=== PATIENT | male | born 1960 | race Two or more races ===

== ENCOUNTER 2025-03-03 17:08 | Emergency (ER) | payer MEDICAID ==
[~2025-03-03] VITALS: Ht 182.9 cm; Wt 108.5 kg
[~2025-03-03 17:08] MED LIST: LEVO750T8 PO; LISI40TA16 PO; MET500T PO; PANT40TA2 PO; TIRZ2.5I SC; URSO1TAB7 PO
[2025-03-03 17:20] VITALS: BP 123/84; PULSE 87; RESP 18; TEMP 98.1; O2SAT 97
--- NOTE | 2025-03-03 17:30 | ED.PDOC ---
History of Present Illness HPI Comments 64 year old male presents to the ED with a chief complaint of hyperglycemia onset today. Patient states he was experiencing headache, checked his blood glucose at home, was 432, decided to come to ED. PMHx HTN, DM, had not seen PCP for over 1 year, was not taking any medication. Saw PCP 1 week ago, began taking medication for HTN, DM, noticed BG has been increasing. The past 4 days BG has been 375, 310, 301, 432 (today). Follow up appointment with PCP is in 1 month. Denies dizziness, chest pain, shortness of breath, nausea, vomiting, diarrhea, fevers, chills. No other symptoms or modifying factors present at this time. Chief Complaint: Hyperglycemia Time Seen by MD: 17:20 Primary Care Provider: CARLEY Reviewed Notes: Medications, Allergies Allergies: Coded Allergies: NO KNOWN ALLERGIES (Unverified , 01/09/14) Home Meds Active Scripts Pantoprazole Sodium Sesquihydr (Protonix) 40 Mg Tab, 40 MG PO DAILY for 14 Days, #14 TAB Prov:ELIAS LOW RESIDENT 01/20/24 Levofloxacin (Levaquin 750 mg) 750 Mg Tab, 1 TAB PO DAILY for 5 Days, #5 TAB [facility] 01/20/24 Metronidazole (Metronidazole) 500 Mg Tab, 500 MG PO TID for 5 Days, #15 TAB Prov:ELIAS [facility] RESIDENT 01/20/24 Ursodiol (Ursodiol) 250 Mg Tab, 250 MG PO BID for 30 Days, #60 TAB [facility] 01/20/24 Reported Medications Tirzepatide (Mounjaro) 2.5 Mg/0.5 Ml Inj, MG SC QWEEKLY, INJ 01/20/24 Lisinopril (Lisinopril) 40 Mg Tab, 50 MG PO DAILY, TAB 01/20/24 Information Source: Patient Mode of Arrival: Ambulatory Severity: Moderate Timing: Hours Duration: Since onset Prehospital treatment: None Past Medical History PAST MEDICAL HISTORY: DM, HTN, Denies Surgical History: Denies all surgeries Family History Family History: No family hx of DM Social History Smoker: Non-Smoker Alcohol: Rarely Drugs: Denies Drug Use Lives In: Home Constitutional: denies: chills, diaphoresis, fatigue, fever, malaise, sweats, weakness, others EENTM: denies: blurred vision, double vision, ear bleeding, ear discharge, ear drainage, ear pain, ear ringing, eye pain, eye redness, hearing loss, mouth pain, mouth swelling, nasal discharge, nose bleeding, nose congestion, nose pain, photophobia, tearing, throat pain, throat swelling, voice changes, others Respiratory: denies: cough, hemoptysis, orthopnea, SOB at rest, shortness of breath, SOB with excertion, stridor, wheezing, others Cardiovascular: denies: chest pain, dizzy spells, diaphoresis, Dyspnea on exertion, edema, irregular heart beat, left arm pain, lightheadedness, palpitations, PND, syncope, others Gastrointestinal: denies: abdomen distended, abdominal pain, blood streaked bowels, constipated, diarrhea, dysphagia, difficulty swallowing, hematemesis, melena, nausea, poor appetite, poor fluid intake, rectal bleeding, rectal pain, vomiting, others Genitourinary: denies: burning, dysuria, flank pain, frequency, hematuria, incontinence, penile discharge, penile sore, pain, testicle pain, testicle swelling, urgency, others Neurological: reports: headache; denies: dizziness, fainting, left sided numbness, left sided weakness, numbness, paresthesia, pre-existing deficit, right sided numbness, right sided weakness, seizure, speech problems, tingling, tremors, weakness, others Musculoskeletal: denies: back pain, gout, joint pain, joint swelling, muscle pain, muscle stiffness, neck pain, others Integumetry: denies: bruises, change in color, change in hair/nails, dryness, laceration, lesions, lumps, rash, wounds, others Allergic/Immunocompromised: denies: Difficulty Healing, Frequent Infections, Hives, Itching, others Hematologic/Lymphatic: denies: anemia, blood clots, easy bleeding, easy bruising, swollen glands, others Endocrine: denies: excessive hunger, excessive sweating, excessive thirst, excessive urination, flushing, intolerance to cold, intolerance to heat, unexplained weight gain, unexplained weight loss, others Psychiatric: denies: anxiety, bipolar disorder, depression, hopeless, panic disorder, schizophrenia, sleepless, suicidal, others All Other Systems: Reviewed and Negative Physical Exam General Appearance: No Apparent Distress, Normal HEENT: Normal ENT Inspection, Pharynx Normal, TMs Normal Neck: Full Range of Motion, Non-Tender, Normal, Normal Inspection Respiratory: Chest Non-Tender, Lungs Clear, No Accessory Muscle Use, No Respiratory Distress, Normal Breath Sounds Cardiovascular: No Edema, No JVD, No Murmur, No Gallop, Normal Peripheral Pulses, Regular Rate/Rhythm Breast Exam: Deferred Gastrointestinal: No Organomegaly, Non Tender, No Pulsatile Mass, Normal Bowel Sounds, Soft Genitalia: Deferred Pelvic: Deferred Rectal: Deferred Extremities: No calf tenderness, Normal capillary refill, Normal inspection, Normal range of motion, Non-tender, No pedal edema Musculoskeletal : Apperance: Normal Neurologic: Alert, production metal sprayer II-XII nml as Tested, No Motor Deficits, Normal Affect, Normal Mood, No Sensory Deficits Cerebellar Function: Normal Reflexes: Normal Skin: Dry, Normal Color, Warm Lymphatic: No Adenopathy Was a procedure done? Was a procedure done?: No Differential Dx Considerations may include: DKA, hyperglycemia, X-Ray, Labs, Meds, VS Vital Signs Date Time Temp Pulse Resp B/P (MAP) Pulse Ox O2 Delivery O2 Flow Rate FiO2 03/03/25 17:20 98.1 87 18 123/84 (97) 97 98.1 Lab Test 03/03/25 17:56 03/03/25 17:35 03/03/25 17:33 Range/Units White Blood Count 12.2 H 4.4-10.8 10^3/uL Red Blood Count 5.81 4.5-5.90 10^6/uL Hemoglobin 16.5 13.5-17.5 g/dL Hematocrit 49.9 41.0-53.0 % Mean Corpuscular Volume 85.9 80.0-100.0 fL Mean Corpuscular Hemoglobin 28.4 28.0-32.0 pg Mean Corpuscular Hemoglobin Concent 33.1 32.0-36.0 g/dL Red Cell Distribution Width 12.9 11.8-14.3 % Platelet Count 234 140-450 10^3/uL Mean Platelet Volume 10.1 6.9-10.8 fL Neutrophils (%) (Auto) 61.8 37.0-80.0 % Lymphocytes (%) (Auto) 23.5 10.0-50.0 % Monocytes (%) (Auto) 11.5 0.0-12.0 % Eosinophils (%) (Auto) 2.2 0.0-7.0 % Basophils (%) (Auto) 1.0 0.0-2.0 % Neutrophils # (Auto) 7.6 1.6-8.6 10 ^3/uL Lymphocytes # (Auto) 2.9 0.4-5.4 10 ^3/uL Monocytes # (Auto) 1.4 H 0-1.3 10 ^3/uL Eosinophils # (Auto) 0.3 0-0.8 10 ^3/uL Basophils # (Auto) 0.1 0-0.2 10 ^3/uL Nucleated Red Blood Cells 0.2 % Sodium Level 135 L 136-145 mmol/L Potassium Level 3.7 3.5-5.1 mmol/L Chloride Level 99 98-107 mmol/L Carbon Dioxide Level 26 20-31 mmol/L Anion Gap 10 5-15 Blood Urea Nitrogen 29 H 9-23 mg/dL Creatinine 1.80 H 0.700-1.30 mg/dL Glomerular Filtration Rate Calc 42 >90 mL/min BUN/Creatinine Ratio 16.1 10.0-20.0 Serum Glucose 276 H 74-106 mg/dL Calcium Level 10.3 8.7-10.4 mg/dL Total Bilirubin 0.8 0.2-1.0 mg/dL Aspartate Amino Transferase (AST) 16 13-40 U/L Alanine Aminotransferase (ALT) 21 7-40 U/L Alkaline Phosphatase 101 46-116 U/L Total Protein 7.8 5.7-8.2 g/dL Albumin 5.0 H 3.2-4.8 g/dL Urine Color Light-yellow Yellow Urine Clarity Clear Clear Urine pH 5.0 5.0-9.0 Urine Specific [place] 1.025 1.001-1.035 Urine Protein Negative Negative Urine Ketones Negative Negative Urine Blood Negative Negative /uL Urine Nitrite Negative Negative Urine Bilirubin Negative Negative Urine Urobilinogen Normal Negative mg/dL Urine Leukocyte Esterase Negative Negative /uL Urine RBC <1 0 - 3 /hpf Urine Microscopic WBC 1 0-3 /HPF Urine Squamous Epithelial Cells Few <5 /hpf Urine Bacteria None seen None Seen /hpf Urine Glucose 4+ H Normal mg/dL POC Glucose 249 H 70-106 mg/dl X-Ray, Labs, Meds, VS Comment Imaging: X-rays and CT scans were reviewed and interpreted by this provider, imaging shows no fractures and no pathological disease. Pending radiology review. Laboratory: Labs reviewed and interpreted by this provider. Elevated blood sugar, signs of hospital acute versus chronic kidney injury, patient states he was producing urine Patient has prior medical visits reviewed. Med reconciliation performed Vital signs reviewed Time of 1ST Reevaluation: 17:50 Reevaluation 1ST: Improved Patient Education/Counseling: Diagnosis, Treatment, Prognosis, Need For Follow Up (Patient advised he will need to call his primary care doctor and follow up tomorrow if available. If he noticed any issues he was signs of decreased urine now but he was returned to the emergency department.) Family Education/Counseling: No Family Present Departure 1 Departure Time of Disposition: 18:56 Impression: Primary Impression: Hypoglycemic event in diabetes Disposition: 01 HOME / SELF CARE / HOMELESS Condition: Fair Discharged With: Self Comments Continue medications as prescribed Critical Care Note Critical Care Time?: No Stability Stability form required: No I personally scribed for BRITTANIE DASILVA ([email or web address]) on 03/03/25 at 17:30. Electronically submitted by Alisson Avila ([email or web address]). BRITTANIE DASILVA Mar 03, 2025 17:30
[2025-03-03 17:47] LABS: Urine Bacteria None Seen /hpf (None Seen)
[2025-03-03 18:08] LABS: Mean Corpuscular Hemoglobin 28.4 pg (28.0-32.0); Mean Corpuscular Hgb Conc. 33.1 g/dL (32.0-36.0)
[2025-03-03 18:25] LABS: Urine Blood Negative /uL (Negative); Urine Clarity Clear (Clear); Urine Color Light-Yellow (Yellow); Urine Protein, UAD Negative (Negative); Urine Specific Gravity 1.025 (1.001-1.035); Urine Squamous Epithelial Cell FEW /hpf (<5); Urine Urobilinogen Normal (Negative); Urine WBC 1 /HPF (0-3)
[2025-03-03 18:26] LABS: Basophils # (auto) 0.1 10 ^3/uL (0-0.2); Eosinophils # (auto) 0.3 10 ^3/uL (0-0.8); Eosinophils % (auto) 2.2 % (0.0-7.0); Hematocrit 49.9 % (41.0-53.0); Hemoglobin 16.5 g/dL (13.5-17.5); Lymphocytes # (auto) 2.9 10 ^3/uL (0.4-5.4); Lymphocytes % (auto) 23.5 % (10.0-50.0); Mean Corpuscular Volume 85.9 fL (80.0-100.0); Monocytes # (auto) 1.4 10 ^3/uL (0-1.3); Monocytes % (auto) 11.5 % (0.0-12.0); Neutrophils # (auto) 7.6 10 ^3/uL (1.6-8.6); Neutrophils % (auto) 61.8 % (37.0-80.0); Nucleated Red Blood Cells % 0.2 %; Platelet Count (auto) 234 10^3/uL (140-450); Red Blood Cells 5.81 10^6/uL (4.5-5.90); Red Cell Distribution Width 12.9 % (11.8-14.3); White Blood Cell 12.2 10^3/uL (4.4-10.8)
[2025-03-03 18:29] LABS: Alanine Aminotransferase 21 U/L (7-40); Alkaline Phosphatase 101 U/L (46-116); Anion Gap 10 (5-15); Aspartate Aminotransferase 16 U/L (13-40); BUN/Creatinine Ratio 16.1 (10.0-20.0); Calcium 10.3 mg/dL (8.7-10.4); Carbon Dioxide 26 mmol/L (20-31); Chloride 99 mmol/L (98-107); Potassium 3.7 mmol/L (3.5-5.1); Total Protein 7.8 g/dL (5.7-8.2)
[2025-03-03 18:30] LABS: Bilirubin, Total 0.8 mg/dL (0.2-1.0)
[2025-03-03 18:36] LABS: Blood Urea Nitrogen 29 mg/dL (9-23); Glucose 276 mg/dL (74-106); Sodium 135 mmol/L (136-145)
== END 2025-03-03 20:37 | disposition home or self-care (01) ==
LOC: ER 17:08
DX: E11.649 Type 2 diabetes mellitus with hypoglycemia without coma (principal); I10 Essential (primary) hypertension; Z79.85 Long-term (current) use of injectable non-insulin antidiabetic drugs; Z79.899 Other long term (current) drug therapy
CPT/HCPCS: 36415; 80053; 81001; 82947; 82962; 85025

== ENCOUNTER 2025-05-24 20:10 | Inpatient (IN) | payer SELFPAY ==
[~2025-05-24] VITALS: Ht 182.9 cm; Wt 107.1 kg
[2025-05-24 20:48] LABS: Urine Bacteria None Seen /hpf (None Seen)
[2025-05-24 21:02] LABS: Basophils # (auto) 0.1 10 ^3/uL (0-0.2); Basophils % (auto) 0.8 % (0.0-2.0); Eosinophils # (auto) 0 10 ^3/uL (0-0.8); Eosinophils % (auto) 0.1 % (0.0-7.0); Hematocrit 45.5 % (41.0-53.0); Hemoglobin 15.3 g/dL (13.5-17.5); Lymphocytes # (auto) 0.6 10 ^3/uL (0.4-5.4); Lymphocytes % (auto) 5.7 % (10.0-50.0); Mean Corpuscular Hemoglobin 28.3 pg (28.0-32.0); Mean Corpuscular Hgb Conc. 33.6 g/dL (32.0-36.0); Mean Corpuscular Volume 84.3 fL (80.0-100.0); Monocytes # (auto) 0.9 10 ^3/uL (0-1.3); Monocytes % (auto) 8.2 % (0.0-12.0); Neutrophils # (auto) 9.7 10 ^3/uL (1.6-8.6); Neutrophils % (auto) 85.2 % (37.0-80.0); Platelet Count (auto) 265 10^3/uL (140-450); Red Cell Distribution Width 13.3 % (11.8-14.3); White Blood Cell 11.4 10^3/uL (4.4-10.8)
[2025-05-24 21:11] LABS: Chloride 107 mmol/L (98-107); Potassium 4.6 mmol/L (3.5-5.1); Sodium 141 mmol/L (136-145)
[2025-05-24 21:12] LABS: Anion Gap 9 (5-15); Carbon Dioxide 25 mmol/L (20-31)
[2025-05-24 21:17] LABS: BUN/Creatinine Ratio 11.4 (10.0-20.0); Blood Urea Nitrogen 17 mg/dL (9-23)
[2025-05-24 21:39] LABS: Glucose 260 mg/dL (74-106)
[2025-05-24 21:40] LABS: Urine Blood Negative /uL (Negative); Urine Clarity Clear (Clear); Urine Color Yellow (Yellow); Urine Mucus FEW (None Seen); Urine Protein, UAD Negative (Negative); Urine Specific Gravity 1.024 (1.001-1.035); Urine Squamous Epithelial Cell FEW /hpf (<5); Urine Urobilinogen Normal (Negative); Urine WBC 2 /HPF (0-3); Urine pH 5.5 (5.0-9.0)
--- NOTE | 2025-05-24 21:51 | ED.PDOC ---
GI ASSESSMENT HPI Comments 64 year old male presents to the ED with a chief complaint of abdominal pain onset today (05/24/25) about 2 hours prior to ED arrival. Patient states he began experiencing LLQ pain about 2 hours ago, noticed pain radiates to LT leg. Patient also noticed he has been experiencing constipation. He ran out of DM medication about 2 weeks ago. PMHx HTN, DM, kidney stones. Denies nausea, vomiting, diarrhea, headache, dizziness, dysuria, hematuria, frequency, chest pain, shortness of breath, fevers, chills. No other symptoms or modifying factors present at this time. Chief Complaint: Abdominal Pain Time Seen by MD: 21:40 Primary Care Provider: Leighton MONTIEL Reviewed Notes: Medications, Allergies Allergies: Coded Allergies: NO KNOWN ALLERGIES (Unverified , 01/09/14) Home Meds Active Scripts Pantoprazole Sodium Sesquihydr (Protonix) 40 Mg Tab, 40 MG PO DAILY for 14 Days, #14 TAB [facility] 01/20/24 Levofloxacin (Levaquin 750 mg) 750 Mg Tab, 1 TAB PO DAILY for 5 Days, #5 TAB [facility] 01/20/24 Metronidazole (Metronidazole) 500 Mg Tab, 500 MG PO TID for 5 Days, #15 TAB [facility] 01/20/24 Ursodiol (Ursodiol) 250 Mg Tab, 250 MG PO BID for 30 Days, #60 TAB [facility] 01/20/24 Reported Medications Tirzepatide (Mounjaro) 2.5 Mg/0.5 Ml Inj, MG SC QWEEKLY, INJ 01/20/24 Lisinopril (Lisinopril) 40 Mg Tab, 50 MG PO DAILY, TAB 01/20/24 Information Source: Patient Mode of Arrival: Ambulatory Timing: Hours Duration: Since onset Prehospital treatment: None Quality: Sharp Vomitus: None Severity: Moderate Recent: None Recent Hx of: None Pain Location: LLQ Modifying Factors: Nothing Associated sign and symptoms: Constipation, Abdominal Pain (LLQ) Past Medical History PAST MEDICAL HISTORY: DM, HTN Surgical History: Denies all surgeries Family History Family History: No family hx of DM Social History Smoker: Non-Smoker Alcohol: Rarely Drugs: Denies Drug Use Lives In: Home Constitutional: denies: chills, diaphoresis, fatigue, fever, malaise, sweats, weakness, others EENTM: denies: blurred vision, double vision, ear bleeding, ear discharge, ear drainage, ear pain, ear ringing, eye pain, eye redness, hearing loss, mouth pain, mouth swelling, nasal discharge, nose bleeding, nose congestion, nose pain, photophobia, tearing, throat pain, throat swelling, voice changes, others Respiratory: denies: cough, hemoptysis, orthopnea, SOB at rest, shortness of breath, SOB with excertion, stridor, wheezing, others Cardiovascular: denies: chest pain, dizzy spells, diaphoresis, Dyspnea on exertion, edema, irregular heart beat, left arm pain, lightheadedness, palpitations, PND, syncope, others Gastrointestinal: reports: abdominal pain (LLQ), constipated; denies: abdomen distended, blood streaked bowels, diarrhea, dysphagia, difficulty swallowing, hematemesis, melena, nausea, poor appetite, poor fluid intake, rectal bleeding, rectal pain, vomiting, others Genitourinary: denies: burning, dysuria, flank pain, frequency, hematuria, incontinence, penile discharge, penile sore, pain, testicle pain, testicle swelling, urgency, others Neurological: denies: dizziness, fainting, headache, left sided numbness, left sided weakness, numbness, paresthesia, pre-existing deficit, right sided numbness, right sided weakness, seizure, speech problems, tingling, tremors, weakness, others Musculoskeletal: reports: others (LT leg pain); denies: back pain, gout, joint pain, joint swelling, muscle pain, muscle stiffness, neck pain Integumetry: denies: bruises, change in color, change in hair/nails, dryness, laceration, lesions, lumps, rash, wounds, others Allergic/Immunocompromised: denies: Difficulty Healing, Frequent Infections, Hives, Itching, others Hematologic/Lymphatic: denies: anemia, blood clots, easy bleeding, easy bruisi ng, swollen glands, others Endocrine: denies: excessive hunger, excessive sweating, excessive thirst, exce ssive urination, flushing, intolerance to cold, intolerance to heat, unexplained weight gain, unexplained weight loss, others Psychiatric: denies: anxiety, bipolar disorder, depression, hopeless, panic disorder, schizophrenia, sleepless, suicidal, others All Other Systems: Reviewed and Negative Physical Exam General Appearance: Normal HEENT: Normal ENT Inspection, Pharynx Normal, TMs Normal Neck: Full Range of Motion, Non-Tender, Normal, Normal Inspection Respiratory: Chest Non-Tender, Lungs Clear, No Accessory Muscle Use, No Respiratory Distress, Normal Breath Sounds Cardiovascular: No Edema, No JVD, No Murmur, No Gallop, Normal Peripheral Pulses, Regular Rate/Rhythm Breast Exam: Deferred Gastrointestinal: No Organomegaly, Non Tender, No Pulsatile Mass, Normal Bowel Sounds, Soft Genitalia: Deferred Pelvic: Deferred Rectal: Deferred Extremities: No calf tenderness, Normal capillary refill, Normal inspection, Normal range of motion, Non-tender, No pedal edema Musculoskeletal : Apperance: Normal Neurologic: Alert, armhole raiser lockstitch II-XII nml as Tested, No Motor Deficits, Normal Affect, Normal Mood, No Sensory Deficits Cerebellar Function: Normal Reflexes: Normal Skin: Dry, Normal Color, Warm Lymphatic: No Adenopathy Was a procedure done? Was a procedure done?: No GI differential Dx Differential Diagnosis: Gastritis/PUD, Gastroenteritis, PID, UTI X-Ray, Labs, Meds, VS Vital Signs Date Time Temp Pulse Resp B/P (MAP) Pulse Ox O2 Delivery O2 Flow Rate FiO2 05/24/25 23:41 99.1 70 18 123/74 (90) 95 99.1 05/24/25 23:40 70 18 123/84 05/24/25 22:40 72 21 99 Room Air 05/24/25 22:40 98.3 72 21 133/116 (122) 99 98.3 05/24/25 22:39 72 21 133/116 05/24/25 20:34 97.3 79 16 161/88 (112) 96 97.3 Lab Test 05/24/25 20:48 05/24/25 20:46 Range/Units White Blood Count 11.4 H 4.4-10.8 10^3/uL Red Blood Count 5.40 4.5-5.90 10^6/uL Hemoglobin 15.3 13.5-17.5 g/dL Hematocrit 45.5 41.0-53.0 % Mean Corpuscular Volume 84.3 80.0-100.0 fL Mean Corpuscular Hemoglobin 28.3 28.0-32.0 pg Mean Corpuscular Hemoglobin Concent 33.6 32.0-36.0 g/dL Red Cell Distribution Width 13.3 11.8-14.3 % Platelet Count 265 140-450 10^3/uL Mean Platelet Volume 8.8 6.9-10.8 fL Neutrophils (%) (Auto) 85.2 H 37.0-80.0 % Lymphocytes (%) (Auto) 5.7 L 10.0-50.0 % Monocytes (%) (Auto) 8.2 0.0-12.0 % Eosinophils (%) (Auto) 0.1 0.0-7.0 % Basophils (%) (Auto) 0.8 0.0-2.0 % Neutrophils # (Auto) 9.7 H 1.6-8.6 10 ^3/uL Lymphocytes # (Auto) 0.6 0.4-5.4 10 ^3/uL Monocytes # (Auto) 0.9 0-1.3 10 ^3/uL Eosinophils # (Auto) 0 0-0.8 10 ^3/uL Basophils # (Auto) 0.1 0-0.2 10 ^3/uL Nucleated Red Blood Cells 0.0 % Sodium Level 141 136-145 mmol/L Potassium Level 4.6 3.5-5.1 mmol/L Chloride Level 107 98-107 mmol/L Carbon Dioxide Level 25 20-31 mmol/L Anion Gap 9 5-15 Blood Urea Nitrogen 17 9-23 mg/dL Creatinine 1.49 H 0.700-1.30 mg/dL Glomerular Filtration Rate Calc 52 >90 mL/min BUN/Creatinine Ratio 11.4 10.0-20.0 Serum Glucose 260 H 74-106 mg/dL Calcium Level 10.0 8.7-10.4 mg/dL Urine Color Yellow Yellow Urine Clarity Clear Clear Urine pH 5.5 5.0-9.0 Urine Specific [place] 1.024 1.001-1.035 Urine Protein Negative Negative Urine Ketones 1+ H Negative Urine Blood Negative Negative /uL Urine Nitrite Negative Negative Urine Bilirubin Negative Negative Urine Urobilinogen Normal Negative mg/dL Urine Leukocyte Esterase Negative Negative /uL Urine RBC 1 0 - 3 /hpf Urine Microscopic WBC 2 0-3 /HPF Urine Squamous Epithelial Cells Few <5 /hpf Urine Bacteria None seen None Seen /hpf Urine Mucus Few None Seen Urine Glucose 3+ H Normal mg/dL Current Medications Medications (Trade) Dose Ordered Sig/Joao Route Start Time Stop Time Status Last Admin Sodium Chloride 1,000 ml @ 1,000 mls/hr Q1H ONCE IV 05/24/25 22:15 05/24/25 23:14 DC 05/24/25 22:39 Ondansetron HCl (Zofran) 4 mg ONCE ONCE IV 05/24/25 22:15 05/24/25 22:16 DC 05/24/25 22:38 Morphine Sulfate 4 mg ONCE ONCE IV 05/24/25 22:15 05/24/25 22:16 DC 05/24/25 22:39 Time of 1ST Reevaluation: 22:10 Reevaluation 1ST: Unchanged Patient Education/Counseling: Diagnosis, Treatment, Prognosis Family Education/Counseling: No Family Present SEPSIS Sepsis Screen Date sepsis recognized/suspect: May 24, 2025 Time Sepsis recognized/suspect: 2019 Recent Procedure: No On Antibiotic Therapy: No Respiratory Rate >20: No Heart Rate >90: No Temp<36 C (96.8 F) or >38.3 C: No SBP <90 or MAP <65 mmHG: No New Acute Mental Status Change: No Is the patient on CPAP, BIPAP,: No Physician Orders Ct Ab Pel With Iv Con Only (05/24/25 22:09) NS (05/25/25 00:15) Tamsulosin Hydrochloride (Flomax) (05/25/25 00:15) Ketorolac Injection (Toradol Injection) (05/25/25 00:15) Vital Signs Date Time Temp Pulse Resp B/P (MAP) Pulse Ox O2 Delivery O2 Flow Rate FiO2 05/24/25 23:41 99.1 70 18 123/74 (90) 95 99.1 05/24/25 23:40 70 18 123/84 05/24/25 22:40 72 21 99 Room Air 05/24/25 22:40 98.3 72 21 133/116 (122) 99 98.3 05/24/25 22:39 72 21 133/116 05/24/25 20:34 97.3 79 16 161/88 (112) 96 97.3 Laboratory Tests Test 05/24/25 20:48 White Blood Count 11.4 10^3/uL (4.4-10.8) H Medications Medications Dose Ordered Sig/Joao Route Start Time Stop Time Status Last Admin Dose Admin Morphine Sulfate 4 mg ONCE ONCE IV 05/24/25 22:15 05/24/25 22:16 DC 05/24/25 22:39 Ondansetron HCl 4 mg ONCE ONCE IV 05/24/25 22:15 05/24/25 22:16 DC 05/24/25 22:38 Sodium Chloride 1,000 ml @ 1,000 mls/hr Q1H ONCE IV 05/24/25 22:15 05/24/25 23:14 DC 05/24/25 22:39 Departure 1 Departure Time of Disposition: 00:04 (Patient presented with abdominal pain that was concerning for possible appendicits, gastritis, cholecystitis, colitis, gastr oenteritis, sbo, or orther possible surgical emergency. Data: 1. I ordered and reviewed the result of at least 3 labs including a CBC, BMP, and Urinalysis. 2. I independently interpreted the following tests: CT Abdoment and Pelvis is concerning for renal colic .Risk:This patient has a high risk of morbidity due to further diagnostic testing or treatment and may suffer from an acute abdominal process disorder. Workup reveals renal colic and hydronephrosis and patient should be admitted for further workup. and possible expert consultation. ) Impression: Primary Impression: Flank pain Additional Impressions: Renal colic on left side Intractable abdominal pain Disposition: ADMITTED INPATIENT Admit to: Med Surg Condition: Guarded Critical Care Note Critical Care Time?: Yes Critical care comment: Intractable abdominal pain Authorized and Performed by: Gregorio Gregorio MD Total critical care time: Approximately _39 minutes Due to a high probability of clinically significant, life threatening deterioration, the patient required my highest level of preparedness to intervene emergently and I personally spent this critical care time directly and personally managing the patient. This critical care time included obtaining a history; examining the patient; pulse oximetry; ordering and review of studies; arranging urgent treatment with development of a management plan; evaluation of patient's response to treatment; frequent reassessment; and, discussions with other providers. This critical care time was performed to assess and manage the high probability of imminent, life-threatening deterioration that could result in multi-organ failure. It was exclusive of separately billable procedures and treating other patients and teaching time. Please see my other sections and the rest of the note for further information on patient assessment and treatment. Stability Stability form required: No I personally scribed for GREGORIO GREGORIO MD ([email or web address]) on 05/24/25 at 21:51. Electronically submitted by Alisson Avila ([email or web address]). GREGORIO GREGORIO MD May 24, 2025 21:51
[2025-05-24] MEDS: IOHEXOL 300 MG/ML 100ML BOTTLE IJ ONE (22:18)
[2025-05-24] MEDS: ONDANSETRON HCL 4 MG/2 ML VIAL IV ONE (22:38)
[2025-05-24] MEDS: MORPHINE SULFATE 4 MG/ML SYR/VIAL IV ONE (22:39)
[2025-05-24] MEDS: SODIUM CHLORIDE 0.9% 1,000 ML IV ONE (22:39)
--- NOTE | 2025-05-24 23:47 | DVH ---
CT OF THE ABDOMEN AND PELVIS WITH CONTRAST. HISTORY: abdominal pain COMPARISON: None TECHNIQUE: Helical axial CT images of the abdomen and pelvis were obtained with intravenous contrast. Multiplanar reformats. One or more of the following radiation dose reduction techniques were used fo r this examination: automated exposure control, adjustment of the mA and/or kV according to patient s ize, use of iterative reconstruction technique. FINDINGS: Atelectasis/scarring noted in the left lower lobe and lingula. Liver: No discrete hepatic lesions as visualized. Gallbladder and biliary system: Cholelithiasis. No biliary ductal dilatation. Pancreas: Negative. Spleen: Negative. Adrenal Glands: Negative. Kidneys and collecting system: Symmetrical enhancement. Mild left hydroureteronephrosis and perinephr ic inflammation. An approximately 2-3 mm calculus is seen in the distal left ureter at the ureteroves icular junction. No right hydroureteronephrosis. Retroperitoneum: No evidence of abdominal aortic aneurysm. Lymph nodes: No discretely enlarged lymph nodes identified. Bowel: Postsurgical changes of the stomach. No evidence of bowel obstruction. Normal caliber appendi x. Extensive colonic diverticulosis. No definite CT evidence of diverticulitis at this time. No ron e intraperitoneal air or fluid identified. Without Pelvis: The prostate is enlarged. No sizable, intraluminal bladder calculus identified at this time. Osseous structures: Multilevel degenerative changes of the thoracolumbar spine. IMPRESSION: Approximately 2-3 mm calculus in the distal left ureter causing mild left hydroureteronephrosis and p erinephric inflammation. Other findings as above.
[2025-05-25] VITALS (7 sets, daily range): BP systolic 132–158; BP diastolic 73–89; PULSE 59–69; RESP 14–20; TEMP 97.6–98.9; O2SAT 93–97
[2025-05-25] MEDS ORDERED: SODIUM CHLORIDE 0.9% 1,000 ML IV ONE (00:15)
[2025-05-25] MEDS ORDERED: ONDANSETRON HCL 4 MG/2 ML VIAL IV PRN (01:45)
[2025-05-25] MEDS ORDERED: ACETAMINOPHEN 325 MG TAB PO PRN (01:45)
--- NOTE | 2025-05-25 02:11 | DVHHPRES ---
History of Present Illness Resident Creating Document: SHELBY TANNER RESIDENT History of Present Illness Patient is a 64-year-old male with a past medical history of [id number] T2DM, hypertension presented to the ER with a chief complaint of left lower quadrant pain started around 2:00 p.m. yesterday. Patient reported he was apparently well and around 2:00 p.m. yesterday had sudden onset left lower quadrant pain was crampy in nature, intermittent with the episodes of sharp pain, severe 10/10 on intensity patient and the patient had 2 episodes of dry heaving and chills but denied any fever. Patient does report history of kidney stones. For last 6 months he has been having symptoms of hesitancy, dribbling, urgency. Patient denied being constipated and had his last bowel movement yesterday in the morning, no diarrhea. Past medical history: As per HPI No surgical history Home medications: Jardiance Social history: Patient denies smoking, alcohol, drug use Review of Systems Review of Systems Patient seen and examined at the bedside Reports abdominal pain has improved since he was given in the pain medication No dysuria, chest pain, shortness of breath Allergies: Coded Allergies: NO KNOWN ALLERGIES (Unverified , 01/09/14) Medications Current Medications Medications Dose Ordered Sig/Joao Route Start Time Stop Time Status Last Admin Dose Admin Tamsulosin HCl 0.4 mg QPM PO 05/25/25 18:00 UNV Acetaminophen 650 mg Q6HP PRN PO 05/25/25 01:45 UNV Acetaminophen/ Hydrocodone Bitart 1 tab Q6HPRN PRN PO 05/25/25 01:45 UNV Ondansetron HCl 4 mg Q6HPRN PRN IV 05/25/25 01:45 UNV Exam Vital Signs Vital Signs Date Time Temp Pulse Resp B/P (MAP) Pulse Ox O2 Delivery O2 Flow Rate FiO2 05/24/25 23:41 99.1 70 18 123/74 (90) 95 99.1 05/24/25 22:40 Room Air Exam Gen - no pallor, no icterus, no cyanosis, no clubbing, no LAD, no edema . Skin - Patients skin is warm and dry. HEENT - normocephalic, atraumatic, dry mucous membranes. Neck - full ROM, no LAD, no JVD Pulmonary - B/L equal breath sounds, no crackles, no wheezing, no stridor. cardiovascular - regular S1,S2 heard, no added sounds, no murmurs heard. GI - soft, nontender abdomen. no hepatospleenomegaly. Bowel sounds normoactive Neurological - Patient is A/O X 3 . Bilateral upper extremity strength 5/5, bilateral lower extremity strength 5/5, no facial droop, normal speech, no tremor, no sensory deficiets. Labs/Xrays Labs Test 05/24/25 20:48 05/24/25 20:46 Range/Units White Blood Count 11.4 H 4.4-10.8 10^3/uL Red Blood Count 5.40 4.5-5.90 10^6/uL Hemoglobin 15.3 13.5-17.5 g/dL Hematocrit 45.5 41.0-53.0 % Mean Corpuscular Volume 84.3 80.0-100.0 fL Mean Corpuscular Hemoglobin 28.3 28.0-32.0 pg Mean Corpuscular Hemoglobin Concent 33.6 32.0-36.0 g/dL Red Cell Distribution Width 13.3 11.8-14.3 % Platelet Count 265 140-450 10^3/uL Mean Platelet Volume 8.8 6.9-10.8 fL Neutrophils (%) (Auto) 85.2 H 37.0-80.0 % Lymphocytes (%) (Auto) 5.7 L 10.0-50.0 % Monocytes (%) (Auto) 8.2 0.0-12.0 % Eosinophils (%) (Auto) 0.1 0.0-7.0 % Basophils (%) (Auto) 0.8 0.0-2.0 % Neutrophils # (Auto) 9.7 H 1.6-8.6 10 ^3/uL Lymphocytes # (Auto) 0.6 0.4-5.4 10 ^3/uL Monocytes # (Auto) 0.9 0-1.3 10 ^3/uL Eosinophils # (Auto) 0 0-0.8 10 ^3/uL Basophils # (Auto) 0.1 0-0.2 10 ^3/uL Nucleated Red Blood Cells 0.0 % Sodium Level 141 136-145 mmol/L Potassium Level 4.6 3.5-5.1 mmol/L Chloride Level 107 98-107 mmol/L Carbon Dioxide Level 25 20-31 mmol/L Anion Gap 9 5-15 Blood Urea Nitrogen 17 9-23 mg/dL Creatinine 1.49 H 0.700-1.30 mg/dL Glomerular Filtration Rate Calc 52 >90 mL/min BUN/Creatinine Ratio 11.4 10.0-20.0 Serum Glucose 260 H 74-106 mg/dL Calcium Level 10.0 8.7-10.4 mg/dL Urine Color Yellow Yellow Urine Clarity Clear Clear Urine pH 5.5 5.0-9.0 Urine Specific [place] 1.024 1.001-1.035 Urine Protein Negative Negative Urine Ketones 1+ H Negative Urine Blood Negative Negative /uL Urine Nitrite Negative Negative Urine Bilirubin Negative Negative Urine Urobilinogen Normal Negative mg/dL Urine Leukocyte Esterase Negative Negative /uL Urine RBC 1 0 - 3 /hpf Urine Microscopic WBC 2 0-3 /HPF Urine Squamous Epithelial Cells Few <5 /hpf Urine Bacteria None seen None Seen /hpf Urine Mucus Few None Seen Urine Glucose 3+ H Normal mg/dL Assessment/Plan Assessment/Plan Assessment Acute abdominal pain Left lower quadrant pain Left hydronephrosis likely due to left ureteric stone SIRS likely due to above Colonic diverticulosis Prostatomegaly , possible BPH ALANNA on CKD likely obstructive Type 2 diabetes mellitus with a hyperglycemia CT abdomen pelvis with IV contrast shows approximately 2-3 mm calculus in the distal left ureter at the UVJ junction with a mild left hydroureteronephrosis a nd perinephric inflammation, prostatomegaly, colonic diverticulosis without CT evidence of diverticulitis Plan - IV fluids - Flomax - pain management - IV ceftriaxone - full liquid diet - HbA1c pending, on insulin sliding scale mild PUD prophylaxis: Protonix Goals of care discussed with the patient for over 19 minutes. Full code Time spent: 37 minute Plan discussed with Dr. Valles Plan discussed with: Patient My Orders Orders - SHELBY TANNER RESIDENT Procedure Category Date Status Time Admit ADMIT 05/25/25 Transmitted 01:36 Stat Ekg For Chest MEG 05/25/25 In Process Pain 01:36 Notify Md Of Changes MEG 05/25/25 In Process From Base 01:36 Full Liq Diet DIET 05/25/25 Transmitted Breakfast Tamsulosin PHA 05/25/25 Logged Hydrochloride (Flomax) 18:00 Acetaminophen Tablet PHA 05/25/25 Logged (Tylenol Tablet) 01:45 Hydrocodone-Acet PHA 05/25/25 Logged 5/325mg Tab ([place] 01:45 Ondansetron Hcl PHA 05/25/25 Logged (Zofran) 01:45 Sodium Chloride 0.9% PHA 05/25/25 Logged 01:45 Complete Blood Count LAB 05/25/25 Logged 04:00 Comprehensive LAB 05/25/25 Logged Metabolic Panel 04:00 Hemoglobin A1c LAB 05/25/25 Logged 01:36 Date of Service: May 25, 2025 Billing Provider: YOSEPH VALLES MD Common Visit Codes: [id number] INP/OBS CARE (HIGH) Secondary Visit Codes: [id number] CARE PLAN 30 MINUTES SHELBY TANNER RESIDENT May 25, 2025 02:11
[2025-05-25] MEDS ORDERED: DEXTROSE (50%) 50ML SYRG IV PRN (02:15)
[2025-05-25] MEDS: TAMSULOSIN HYDROCHLORIDE 0.4 MG CAP PO ONE (02:50)
[2025-05-25] MEDS: KETOROLAC TROMETH 30 MG/ML 1ML VIAL IV ONE (02:50)
[2025-05-25] MEDS: SODIUM CHLORIDE 0.9% 1,000 ML IV ONE (04:05)
[2025-05-25] MEDS: cefTRIAXone 1GM/50ML D5W 50 ML IV ONE (04:05)
[2025-05-25] MEDS: PANTOPRAZOLE 40 MG TAB PO SCH (05:06)
[2025-05-25] MEDS: ACCU-CHEK COMFORT CURVE STRIP VI SCH (06:19)
[2025-05-25] MEDS: InsuLIN REG 1unit/0.01ml Soln (100units/ml) SC SCH (06:20)
[2025-05-25 07:45] LABS: Basophils # (auto) 0.1 10 ^3/uL (0-0.2); Basophils % (auto) 0.8 % (0.0-2.0); Eosinophils # (auto) 0 10 ^3/uL (0-0.8); Eosinophils % (auto) 0.5 % (0.0-7.0); Hematocrit 43.1 % (41.0-53.0); Hemoglobin 14.2 g/dL (13.5-17.5); Lymphocytes # (auto) 1.2 10 ^3/uL (0.4-5.4); Lymphocytes % (auto) 13.8 % (10.0-50.0); Mean Corpuscular Hgb Conc. 32.8 g/dL (32.0-36.0); Mean Corpuscular Volume 85.3 fL (80.0-100.0); Monocytes % (auto) 11.4 % (0.0-12.0); Neutrophils # (auto) 6.2 10 ^3/uL (1.6-8.6); Neutrophils % (auto) 73.5 % (37.0-80.0); Nucleated Red Blood Cells % 0.2 %; Platelet Count (auto) 245 10^3/uL (140-450); Red Blood Cells 5.06 10^6/uL (4.5-5.90); Red Cell Distribution Width 13.5 % (11.8-14.3); White Blood Cell 8.4 10^3/uL (4.4-10.8)
[2025-05-25 08:31] LABS: Alanine Aminotransferase 17 U/L (7-40); Albumin 4.2 g/dL (3.2-4.8); Alkaline Phosphatase 73 U/L (46-116); Aspartate Aminotransferase 20 U/L (<34); BUN/Creatinine Ratio 10.4 (10.0-20.0); Bilirubin, Total 0.7 mg/dL (0.2-1.0); Blood Urea Nitrogen 17 mg/dL (9-23); Calcium 9.4 mg/dL (8.7-10.4); Chloride 107 mmol/L (98-107); Total Protein 6.5 g/dL (5.7-8.2)
[2025-05-25 08:32] LABS: Glucose 183 mg/dL (74-106)
[2025-05-25 08:48] LABS: Potassium 4.2 mmol/L (3.5-5.1); Sodium 140 mmol/L (136-145)
[2025-05-25 08:49] LABS: Anion Gap 9 (5-15); Carbon Dioxide 24 mmol/L (20-31)
[2025-05-25] MEDS: amLODIPine BESYLATE 5 MG TAB PO ONE (09:03)
--- NOTE | 2025-05-25 14:17 | DVHPNRES ---
Progress Note Date Seen: May 25, 2025 Resident Creating Document: LESLI CHRISTY RESIDENT Has the PT tested + for MRSA If YES, has PT been informed?: No Medical Necessity Reason Pt with a Central, PICC or Fol: No Subjective Review of Systems Patient is a 64-year-old male with a past medical history of [id number] T2DM, hypertension presented to the ER with a chief complaint of left lower quadrant pain started around 2:00 p.m. yesterday. Patient reported he was apparently well and around 2:00 p.m. yesterday had sudden onset left lower quadrant pain was crampy in nature, intermittent with the episodes of sharp pain, severe 10/10 on intensity patient and the patient had 2 episodes of dry heaving and chills but denied any fever. Patient does report history of kidney stones. For last 6 months he has been having symptoms of hesitancy, dribbling, urgency. Patient denied being constipated and had his last bowel movement yesterday in the morning, no diarrhea. Past medical history: As per HPI No surgical history Home medications: Jardiance Social history: Patient denies smoking, alcohol, drug use 05/25/25: due to findings in ct scan of hidronephrosis we are going to monitor the patient, pain is controlled Objective vital signs Vital Sign Date Time Temp Pulse Resp B/P (MAP) Pulse Ox O2 Delivery O2 Flow Rate FiO2 05/25/25 13:57 64 14 158/85 (109) 94 05/25/25 08:00 97.8 97.8 05/25/25 03:43 Room Air* 0 21 Total Intake and Output 05/24/25 05/24/25 05/25/25 15:00 23:00 07:00 Intake Total 1000 ml Balance 1000 ml medications Current Medications Medications Dose Ordered Sig/Joao Route Start Time Stop Time Status Last Admin Dose Admin Tamsulosin HCl 0.4 mg QPM PO 05/25/25 18:00 Acetaminophen 650 mg Q6HP PRN PO 05/25/25 01:45 Acetaminophen/ Hydrocodone Bitart 1 tab Q6HPRN PRN PO 05/25/25 01:45 Ondansetron HCl 4 mg Q6HPRN PRN IV 05/25/25 01:45 Ceftriaxone Sodium 50 ml @ 100 mls/hr DAILY@09 IV 05/26/25 09:00 Pantoprazole Sodium 40 mg DAILY@0600 PO 05/25/25 06:00 05/25/25 05:06 40 MG Diagnostic Test (Pha) 1 strip ACHS 05/25/25 07:00 05/25/25 11:32 1 STRIP Insulin Human Regular ACHS SC 05/25/25 07:00 05/25/25 11:26 3 UNITS Dextrose 50 ml UD PRN IV 05/25/25 02:15 Examination Gen - no pallor, no icterus, no cyanosis, no clubbing, no LAD, no edema . Skin - Patients skin is warm and dry. HEENT - normocephalic, atraumatic, dry mucous membranes. Neck - full ROM, no LAD, no JVD Pulmonary - B/L equal breath sounds, no crackles, no wheezing, no stridor. cardiovascular - regular S1,S2 heard, no added sounds, no murmurs heard. GI - soft, nontender abdomen. no hepatospleenomegaly. Bowel sounds normoactive Neurological - Patient is A/O X 3 . Bilateral upper extremity strength 5/5, bilateral lower extremity strength 5/5, no facial droop, normal speech, no tremor, no sensory deficiets. laboratory and microbiology Laboratory Tests 05/25/25 07:15 Test 05/25/25 07:15 Range/Units Serum Glucose 183 H 74-106 mg/dL Problem List/Assessment/Plan Problem List/Assessment/Plan Acute abdominal pain Left lower quadrant pain Left hydronephrosis likely due to left ureteric stone SIRS likely due to above Colonic diverticulosis Prostatomegaly , possible BPH ALANNA on CKD likely obstructive Type 2 diabetes mellitus with a hyperglycemia CT abdomen pelvis with IV contrast shows approximately 2-3 mm calculus in the distal left ureter at the UVJ junction with a mild left hydroureteronephrosis and perinephric inflammation, prostatomegaly, colonic diverticulosis without CT evidence of diverticulitis Plan - IV fluids given - Flomax - pain management - IV ceftriaxone - diabetic diet - HbA1c 8.3, on insulin sliding scale mild and lantus 20 ui -lisinopril 40 mg home med PUD prophylaxis: Protonix Goals of care discussed with the patient for over 19 minutes. Full code Time spent: 37 minute Plan discussed with Dr. Donato Plan discussed with: Patient, Other (rn) Date of Service: May 25, 2025 Billing Provider: TAMMY DONATO MD Common Visit Codes: [id number] INP/OBS CARE(HIGH) LESLI CHRISTY RESIDENT May 25, 2025 14:17 TAMMY DONATO MD May 30, 2025 21:44
[2025-05-25] MEDS: TAMSULOSIN HYDROCHLORIDE 0.4 MG CAP PO SCH (18:03)
[2025-05-25] MEDS: LISINOPRIL 20 MG TAB PO SCH (18:08)
[2025-05-25] MEDS: HYDROcodone-ACET 5/325MG TAB PO PRN (20:42)
[2025-05-25] MEDS: INSULIN LANTUS (GLARGINE) 1 /0.01ml (100units/ml) SC SCH (21:16)
[2025-05-26 01:00] VITALS: BP 144/84; PULSE 63; RESP 18; TEMP 98.6; O2SAT 95
[2025-05-26 05:00] VITALS: BP 133/75; PULSE 60; RESP 18; TEMP 98.3; O2SAT 96
[2025-05-26 06:07] LABS: PSA Free 0.54 ng/mL; Prostate Specific Antigen 2.6 ng/mL (0.0-4.0)
[2025-05-26 06:28] LABS: Basophils # (auto) 0.1 10 ^3/uL (0-0.2); Basophils % (auto) 0.6 % (0.0-2.0); Eosinophils # (auto) 0.1 10 ^3/uL (0-0.8); Eosinophils % (auto) 1.5 % (0.0-7.0); Hematocrit 40.7 % (41.0-53.0); Hemoglobin 13.8 g/dL (13.5-17.5); Lymphocytes # (auto) 1.1 10 ^3/uL (0.4-5.4); Lymphocytes % (auto) 13.6 % (10.0-50.0); Mean Corpuscular Hemoglobin 28.4 pg (28.0-32.0); Mean Corpuscular Hgb Conc. 33.9 g/dL (32.0-36.0); Mean Corpuscular Volume 83.9 fL (80.0-100.0); Monocytes # (auto) 1.1 10 ^3/uL (0-1.3); Monocytes % (auto) 13.1 % (0.0-12.0); Neutrophils % (auto) 71.2 % (37.0-80.0); Platelet Count (auto) 204 10^3/uL (140-450); Red Blood Cells 4.85 10^6/uL (4.5-5.90); Red Cell Distribution Width 13.5 % (11.8-14.3); White Blood Cell 8.4 10^3/uL (4.4-10.8)
[2025-05-26 06:39] LABS: Chloride 106 mmol/L (98-107); Potassium 4.6 mmol/L (3.5-5.1); Sodium 142 mmol/L (136-145)
[2025-05-26 06:40] LABS: Calcium 9.4 mg/dL (8.7-10.4)
[2025-05-26 06:45] LABS: BUN/Creatinine Ratio 11.4 (10.0-20.0); Blood Urea Nitrogen 18 mg/dL (9-23)
[2025-05-26 06:46] LABS: Glucose 141 mg/dL (74-106)
[2025-05-26 07:02] LABS: Anion Gap 7 (5-15); Carbon Dioxide 29 mmol/L (20-31)
[2025-05-26] MEDS: cefTRIAXone 1GM/50ML D5W 50 ML IV SCH (09:16)
[2025-05-26] MEDS: SODIUM CHLORIDE 0.9% 1,000 ML IV ONE (09:18)
[2025-05-26 09:29] VITALS: BP 148/82; PULSE 61; RESP 16; TEMP 98.7; O2SAT 94
--- NOTE | 2025-05-26 10:59 | DVH ---
Renal ultrasound HISTORY: FU hydronephrosis Comparison: Ultrasound done 01/19/[address] done 01/19/2024 TECHNIQUE: 2 D ultrasound was performed with transaxial and longitudinal images. FINDINGS: Right kidney measures 10.8 cm and left kidney measures 12.2 cm. No renal masses, stones or hydronephrosis. Urinary bladder unremarkable. IMPRESSION: 1. No signs of hydronephrosis. 2. The prostate gland is enlarged with volume 48.6 mL
[2025-05-26] MEDS ORDERED: ACET-1079 PO (12:06)
[2025-05-26 14:11] VITALS: BP 148/83; PULSE 56; RESP 16; TEMP 98.3; O2SAT 96
--- NOTE | 2025-05-27 00:36 | DVHDSRES ---
Discharge Summary Date of Admission Resident Creating Document: LESLI CHRISTY RESIDENT May 25, 2025 at 01:36 Date of Discharge: May 26, 2025 Admitting Diagnosis Left hydronephrosis likely due to left ureteric stone Labs/Diagnostic Data: Laboratory Results Test 05/26/25 14:09 05/26/25 11:45 05/26/25 05:57 05/25/25 07:15 Creatinine 1.39 mg/dL (0.700-1.30) Glomerular Filtration Rate Calc 57 mL/min (>90) POC Glucose 101 mg/dl (70-106) White Blood Count 8.4 10^3/uL (4.4-10.8) Red Blood Count 4.85 10^6/uL (4.5-5.90) Hemoglobin 13.8 g/dL (13.5-17.5) Hematocrit 40.7 % (41.0-53.0) Mean Corpuscular Volume 83.9 fL (80.0-100.0) Mean Corpuscular Hemoglobin 28.4 pg (28.0-32.0) Mean Corpuscular Hemoglobin Concent 33.9 g/dL (32.0-36.0) Red Cell Distribution Width 13.5 % (11.8-14.3) Platelet Count 204 10^3/uL (140-450) Mean Platelet Volume 8.8 fL (6.9-10.8) Neutrophils (%) (Auto) 71.2 % (37.0-80.0) Lymphocytes (%) (Auto) 13.6 % (10.0-50.0) Monocytes (%) (Auto) 13.1 % (0.0-12.0) Eosinophils (%) (Auto) 1.5 % (0.0-7.0) Basophils (%) (Auto) 0.6 % (0.0-2.0) Neutrophils # (Auto) 6.0 10 ^3/uL (1.6-8.6) Lymphocytes # (Auto) 1.1 10 ^3/uL (0.4-5.4) Monocytes # (Auto) 1.1 10 ^3/uL (0-1.3) Eosinophils # (Auto) 0.1 10 ^3/uL (0-0.8) Basophils # (Auto) 0.1 10 ^3/uL (0-0.2) Nucleated Red Blood Cells 0.0 % Sodium Level 142 mmol/L (136-145) Potassium Level 4.6 mmol/L (3.5-5.1) Chloride Level 106 mmol/L (98-107) Carbon Dioxide Level 29 mmol/L (20-31) Anion Gap 7 (5-15) Blood Urea Nitrogen 18 mg/dL (9-23) BUN/Creatinine Ratio 11.4 (10.0-20.0) Serum Glucose 141 mg/dL (74-106) Calcium Level 9.4 mg/dL (8.7-10.4) Hemoglobin A1c 8.3 % A1C (<5.7) Total Bilirubin 0.7 mg/dL (0.2-1.0) Aspartate Amino Transferase (AST) 20 U/L (<34) Alanine Aminotransferase (ALT) 17 U/L (7-40) Alkaline Phosphatase 73 U/L (46-116) Total Protein 6.5 g/dL (5.7-8.2) Albumin 4.2 g/dL (3.2-4.8) Free Prostate Specific Antigen 0.54 ng/mL (N/A) Percent Free Prostate Specific Ag 20.8 % (.) Prostate Specific Antigen Total 2.6 ng/mL (0.0-4.0) Test 05/24/25 20:46 Urine Color Yellow (Yellow) Urine Clarity Clear (Clear) Urine pH 5.5 (5.0-9.0) Urine Specific [place] 1.024 (1.001-1.035) Urine Protein Negative (Negative) Urine Ketones 1+ (Negative) Urine Blood Negative /uL (Negative) Urine Nitrite Negative (Negative) Urine Bilirubin Negative (Negative) Urine Urobilinogen Normal mg/dL (Negative) Urine Leukocyte Esterase Negative /uL (Negative) Urine RBC 1 /hpf (0 - 3) Urine Microscopic WBC 2 /HPF (0-3) Urine Squamous Epithelial Cells Few /hpf (<5) Urine Bacteria None seen /hpf (None Seen) Urine Mucus Few (None Seen) Urine Glucose 3+ mg/dL (Normal) Other Laboratory Tests 05/26/25 14:09 05/26/25 05:57 Brief Hx & Hospital Course: The patient presented with acute onset of severe, crampy left lower quadrant pain starting around 2:00 p.m. the previous day. He also experienced two episodes of dry heaving and chills, but no fever. He denied constipation and had a normal bowel movement that morning. Over the past six months, he has reported urinary hesitancy, dribbling, and urgency. He denied any prior history of kidney stones. Initial CT of the abdomen and pelvis revealed a 23 mm calculus in the distal left ureter at the ureterovesicular junction, resulting in mild left hydronephrosis and perinephric inflammation. No evidence of bowel obstruction or diverticulitis was seen. Notably, the prostate was enlarged. The patient was admitted for observation and pain management. Pain improved with supportive care. Follow-up renal ultrasound on 05/26/25 showed resolution of hydronephrosis, no stones or renal masses, and confirmed the presence of prostate enlargement (volume 48.6 mL). No intraluminal bladder calculi were noted. Past Medical History: Type 2 diabetes mellitus (non-insulin dependent), hypertension Surgical History: None Home Medications: Jardiance Social History: Denies smoking, alcohol, or drug use Discharge Condition: Stable and improved Follow-Up: Outpatient urology follow-up recommended for prostate evaluation and further management of lower urinary tract symptoms. Disposition: Discharged home with instructions for hydration and pain control as needed. Case discussed with Dr Donato Operations or Procedures CT OF THE ABDOMEN AND PELVIS WITH CONTRAST. HISTORY: abdominal pain COMPARISON: None TECHNIQUE: Helical axial CT images of the abdomen and pelvis were obtained with intravenous contrast. Multiplanar reformats. One or more of the following radiation dose reduction techniques were used for this examination: automated exposure control, adjustment of the mA and/or kV according to patient size, use of iterative reconstruction technique. FINDINGS: Atelectasis/scarring noted in the left lower lobe and lingula. Liver: No discrete hepatic lesions as visualized. Gallbladder and biliary system: Cholelithiasis. No biliary ductal dilatation. Pancreas: Negative. Spleen: Negative. Adrenal Glands: Negative. Kidneys and collecting system: Symmetrical enhancement. Mild left hydroureteronephrosis and perinephric inflammation. An approximately 2-3 mm calculus is seen in the distal left ureter at the ureterovesicular junction. No right hydroureteronephrosis. Retroperitoneum: No evidence of abdominal aortic aneurysm. Lymph nodes: No discretely enlarged lymph nodes identified. Bowel: Postsurgical changes of the stomach. No evidence of bowel obstruction. Normal caliber appendix. Extensive colonic diverticulosis. No definite CT evidence of diverticulitis at this time. No free intraperitoneal air or fluid identified. Without Pelvis: The prostate is enlarged. No sizable, intraluminal bladder calculus identified at this time. Osseous structures: Multilevel degenerative changes of the thoracolumbar spine. IMPRESSION: Approximately 2-3 mm calculus in the distal left ureter causing mild left hydroureteronephrosis and perinephric inflammation. Other findings as above. Condition at Discharge: Stable Final Diagnosis/Problems List Acute abdominal pain Left lower quadrant pain Left hydronephrosis likely due to left ureteric stone resolved SIRS likely due to above Colonic diverticulosis Prostatomegaly , possible BPH ALANNA on CKD likely obstructive Type 2 diabetes mellitus Discharge Disposition: Home Discharge Instruct/Medications Diet: Consistent carbohydrate, Cardiac 2g Na,low cholest Activity: Light activity Follow Up/Referral: dc clinic Medications: see prescription Discharge Statement: "Patient was advised to return to the ER or call 911 if any headaches, dizziness, shortness of breath, chest pain, abdominal pain, bleeding, fevers, or worsening of medical condition. Patient was counseled about treatment plan, medications, possible side effects, patientverbalized understanding. All questions were answered to the best of my ability. This discharge took greater then 30 minutes in planning, reviewing documentation, counseling the patient, and discussing with other team members." ASSESSMENT ASSESSMENT Assessment Kidney Stone Date of Service: May 26, 2025 Billing Provider: TAMMY DONATO MD Common Visit Codes: [id number]/[id number] DISCH DAY >30min LESLI CHRISTY RESIDENT May 27, 2025 00:36 TAMMY DONATO MD May 30, 2025 22:24
== END 2025-05-26 16:17 | disposition home or self-care (01) | DRG 694 ==
LOC: ER 20:10 → OVERFLOW 05-25 01:36 → WEST WING 05-25 18:46
PROVIDERS: ADMIT Student in an Organized Health Care Education/Training Program; ATTEND Student in an Organized Health Care Education/Training Program
DX: N13.2 Hydronephrosis with renal and ureteral calculous obstruction (principal); R65.10 Systemic inflammatory response syndrome (SIRS) of non-infectious origin without acute organ dysfunction; N17.9 Acute kidney failure, unspecified; K57.90 Diverticulosis of intestine, part unspecified, without perforation or abscess without bleeding; N18.9 Chronic kidney disease, unspecified; N40.1 Benign prostatic hyperplasia with lower urinary tract symptoms; I12.9 Hypertensive chronic kidney disease with stage 1 through stage 4 chronic kidney disease, or unspecified chronic kidney disease; E11.22 Type 2 diabetes mellitus with diabetic chronic kidney disease; E11.65 Type 2 diabetes mellitus with hyperglycemia; Z79.899 Other long term (current) drug therapy
CPT/HCPCS: 36415; 74177; 76775; 80048; 80053; 81001; 82565; 82962; 83036; 84154; 85025; 96361; 96374; 96375; 99291; G0378; J1815; J1885; J2405